=== PATIENT | female | born 1975 | race African-American/Black ===

== ENCOUNTER 2016-11-19 10:33 | Emergency (ER) | payer BC ==
[~2016-11-19 10:33] MED LIST: DICLOFENAC
== END 2016-11-19 11:35 | disposition home or self-care (01) ==
LOC: CED 10:33
DX: L02.31 Cutaneous abscess of buttock (principal); Z88.2 Allergy status to sulfonamides; F17.200 Nicotine dependence, unspecified, uncomplicated
CPT/HCPCS: 10060; 96372; 99283; J1885

== ENCOUNTER 2016-11-21 23:53 | Emergency (ER) | payer BC | END 2016-11-22 00:28 | disposition home or self-care (01) | LOC: CFTX 23:53 | DX: Z48.01 Encounter for change or removal of surgical wound dressing (principal); F17.210 Nicotine dependence, cigarettes, uncomplicated; Z88.1 Allergy status to other antibiotic agents; Z88.2 Allergy status to sulfonamides | CPT/HCPCS: 99281 ==